=== PATIENT | male | born 1980 | race Hispanic/Latino ===

== ENCOUNTER 2019-11-07 | Emergency (ER) | payer SELFPAY ==
[2019-11-07] MEDS ORDERED: CORTISPORIN OTI10 M2 AU (09:49)
== END 2019-11-07 10:00 | disposition home or self-care (01) | DRG 156 ==
PROC: 09C3XZZ Extirpation of Matter from Right External Auditory Canal, External Approach (ICD-10-PCS; principal; 2019-11-07)
DX: T16.1XXA Foreign body in right ear, initial encounter (principal); H60.91 Unspecified otitis externa, right ear; H61.22 Impacted cerumen, left ear; X58.XXXA Exposure to other specified factors, initial encounter